=== PATIENT | male | born 1995 | race African-American/Black ===

== ENCOUNTER → 2023-08-08 | Emergency (ER) | payer SELFPAY ==
[~2023-08-08] MED LIST: DIPHENHYDRAMINE 50 MG/ML VIAL ONE; KETOROLAC 30 MG/ML INJ ONE; METOCLOPRAMIDE 10 MG/2mL INJ ONE; NA CHLORIDE 0.9% 1,000 ML ONE; NA CHLORIDE 0.9% 100 ML ONE; VALPROATE NA 500 MG/5 ML INJ IV ONE
[2023-08-08 17:09] LABS: Absolute Lymphocytes (CBC) 2.7 K/uL (0.7-4.9); Hematocrit 43.2 % (39.6-49.0); Lymphocytes % 45.6 % (15.3-44.8); MCV 85.2 fL (80-100); MPV 7.9 fL (7.6-11.3); Platelets 402 thou/uL (152-406); RBC Red Blood Cell Count 5.07 M/uL (4.33-5.43)
[2023-08-08 17:19] LABS: SARS-CoV-2 Antigen Rapid Res Negative (Negative)
[2023-08-08 17:35] LABS: Bilirubin Total 0.4 mg/dL (0.2-1.0); Potassium 3.7 mEq/L (3.5-5.1); Protein, Total 8.1 g/dL (6.4-8.2)
--- NOTE | 2023-08-08 17:44 | RAD REPORT ---
EXAM DESCRIPTION: CT - Head Brain Wo Cont - 08/08/2023 5:08 pm CLINICAL HISTORY: HEADACHE Headache, drowsiness COMPARISON: No comparisons TECHNIQUE: All CT scans are performed using dose optimization technique as appropriate and may inclu de automated exposure control or mA/KV adjustment according to patient size. FINDINGS: No intracranial hemorrhage, hydrocephalus or extra-axial fluid collection.No areas of brai n edema or evidence of midline shift. Mild mucosal thickening involves the left maxillary antrum. The paranasal sinuses and mastoids are ot herwise clear. The calvarium is intact. IMPRESSION: No acute intracranial abnormality.
--- NOTE | 2023-08-08 18:49 | ER ---
Nurse's Notes [facility] Name: Mikal Landers Age: 27 yrs Sex: Male : 1995 Arrival Date: 08/08/2023 Time: 16:36 Bed 7 Private MD: Diagnosis: Headache;Episodic tension-type headache;Chronic sinusitis, unspecified Presentation: 08/08 16:42 Chief complaint: Patient states: the right side of his head started hurting yesterday ap3 08/07/2023. patient reports his pain to be a 8/10 on the pain scale at this time. Coronavirus screen: At this time, the client does not indicate any symptoms associated with coronavirus-19. Ebola Screen: No symptoms or risks identified at this time. Initial Sepsis Screen: Does the patient meet any 2 criteria? No. Patient's initial sepsis screen is negative. Does the patient have a suspected source of infection? No. Patient's initial sepsis screen is negative. Risk Assessment: Do you want to hurt yourself or someone else? Patient reports no desire to harm self or others. Onset of symptoms was August 07, 2023. 16:42 Method Of Arrival: Ambulatory ap3 16:42 Acuity: ARIS 3 ap3 Triage Assessment: 16:44 Headache History: Denies prior headaches. General: Appears in no apparent distress. ap3 Behavior is calm, cooperative, appropriate for age. Pain: Complains of pain in right frontal area, right side of the back of head and right temporal area Pain currently is 8 out of 10 on a pain scale. Pain began gradually, 1 day ago. Pain: Also complains of no other associated symptoms. Neuro: Level of Consciousness is awake, alert, obeys commands, Oriented to person, place, time, situation, Appropriate for age. Cardiovascular: Patient's skin is warm and dry. Respiratory: Airway is patent Respiratory effort is even, unlabored, Respiratory pattern is regular, symmetrical. Historical: - Allergies: 16:43 No Known Allergies; ap3 - PMHx: 16:43 Seizure; ap3 - Immunization history:: Adult Immunizations up to date. - Social history:: Smoking status: Reported history of juuling and/or vaping. Screenin:[facility] ED Fall Risk Assessment (Adult) History of falling in the last 3 months, ap3 including since admission No falls in past 3 months (0 pts). Abuse screen: Denies threats or abuse. Nutritional screening: No deficits noted. Tuberculosis screening: No symptoms or risk factors identified. Assessment: 17:00 Reassessment: See triage assessment. nj1 17:39 Reassessment: Patient appears in no apparent distress at this time. Patient and/or nj1 family updated on plan of care and expected duration. Pain level reassessed. Patient is alert, oriented x 3, equal unlabored respirations, skin warm/dry/pink. Pain: Complains of pain in head Pain currently is 5 out of 10 on a pain scale. 18:37 Reassessment: Patient appears in no apparent distress at this time. Patient and/or nj1 family updated on plan of care and expected duration. Pain level reassessed. Patient is alert, oriented x 3, equal unlabored respirations, skin warm/dry/pink. Patient states feeling better. Patient states symptoms have improved. Vital Signs: 16:42 BP 128 / 85; Pulse 59; Resp 17; Temp 98.8; Pulse Ox 100% ; Pain 8/10; ap3 17:40 Pain 5/10; nj1 18:37 BP 105 / 55; Pulse 67; Resp 18; Pulse Ox 98% ; Pain 2/10; nj1 16:42 Pain Scale: Adult ap3 17:40 Pain Scale: Adult nj1 18:37 Pain Scale: Adult nj1 [place] Coma Score: 17:16 Eye Response: spontaneous(4). Motor Response: obeys commands(6). Verbal Response: chas oriented(5). Total: 15. 17:17 Eye Response: spontaneous(4). Motor Response: obeys commands(6). Verbal Response: chas oriented(5). Total: 15. NIH Stroke Scale Scores: 17:16 NIHSS Score: 0 [facility] ED Course: 16:41 Patient arrived in ED. gm2 16:42 Iban Davis MD is Attending Physician. chas 16:43 Triage completed. ap3 16:45 Arm band placed on right wrist. ap3 16:52 Indu Bravo, AB is Primary Nurse. nj1 17:00 Patient has correct armband on for positive identification. Placed in gown. Bed in low ko1 position. Call light in reach. Side rails up X 1. Pulse ox on. NIBP on. Door closed. Noise minimized. Lights dimmed. Warm blanket given. 17:01 Inserted saline lock: 20 gauge in right antecubital area, using aseptic technique. as6 Blood collected. 17:01 CBC with Diff Sent. as6 17: Comprehensive Metabolic Panel Sent. as6 17: Flu Sent. as6 17: SARS RAPID Sent. as6 17:07 Provided Education on: call light, fall precautions. nj1 17:09 CT Head Brain wo Cont In Process Unspecified. EDMS 18:48 Eliu Aguilar MD is Referral Physician. [facility] 19:01 No provider procedures requiring assistance completed. IV discontinued, intact, nj1 bleeding controlled. Administered Medications: 17:00 Drug: NS 0.9% IV 1000 ml IV at 1 bolus Per protocol; 1000 mL bolus Route: IV; Rate: 1 nj1 bolus; Site: right antecubital; 18:30 Follow up: Response: No adverse reaction; IV Status: Completed infusion; IV Intake: nj1 1000ml 17:00 Drug: diphenhydrAMINE IVP 50 mg IVP once Route: IVP; Site: right antecubital; nj1 17:41 Follow up: Response: No adverse reaction nj1 17:01 Drug: metoCLOPramide IVP 10 mg IVP once; over 1 to 2 minutes Route: IVP; Site: right nj1 antecubital; 17:41 Follow up: Response: No adverse reaction nj1 17:03 Drug: Ketorolac IVP 30 mg IVP once Route: IVP; Site: right antecubital; nj1 17:40 Follow up: Pain 5/10 Adult; Response: No adverse reaction; Pain is decreased nj1 17:37 Drug: Depacon IV 500 mg 5 ml IV at calculated rate once {Note: Mixed in 100ml NS bag nj1 per pharmacist "Fernando" recommendations .} Volume: 5 ml; Route: IV; Rate: calculated rate; Infused Over: 1 hrs; Site: right antecubital; 18:37 Follow up: Response: No adverse reaction; IV Status: Completed infusion; IV Intake: nj1 100ml Medication: 19:02 VIS not applicable for this client. nj1 Intake: 18:30 IV: 1000ml; Total: 1000ml. nj1 18:37 IV: 100ml; Total: 1100ml. nj1 Outcome: 18:48 Discharge ordered by . chas 19:01 Discharged to home ambulatory, with family, robert 19:01 Condition: improved 19:01 Discharge instructions given to patient, Instructed on discharge instructions, follow up and referral plans. medication usage, Demonstrated understanding of instructions, follow-up care, medications, Prescriptions given X 4, 19:03 Patient left the ED. robert NIH Stroke Scale - NIH Stroke Score Date: 08/08/2023 Time: 17:16 Total Score = 0 10. Dysarthria (speech clarity - read or repeat words) - 0(Normal) 11. Extinction and Inattention (visual/tactile/auditory/spatial/personal) - 0(No abnormality) 1a. Level of Consciousness (LOC) - 0(Alert) 1b. Level of Consciousness (LOC) (Month \\T\\ Age) - 0(Both) 1c. LOC Commands (Open \\T\\ Closes Eyes/Corduroy Cutter Operator) - 0(Both) 2. Best Gaze (Lateral Gaze Paresis) - 0(Normal) 3. Visual Field Loss - 0(No visual loss) 4. Facial Palsy - 0(Normal) 5a. Left Arm: Motor (10-second hold) - 0(No drift) 5b. Right Arm: Motor (10-second hold) - 0(No drift) 6a. Left Leg: Motor (5-second hold - always test supine) - 0(No drift) 6b. Right Leg: Motor (5-second hold - always test supine) - 0(No drift) 7. Limb Ataxia (finger/nose \\T\\ heel/graves - test with eyes open) - 0(Absent) 8. Sensory Loss (pinprick arms/legs/face) - 0(Normal) 9. Best Language: Aphasia (description/naming/reading) - 0(No aphasia) Initials: chas Signatures: Dispatcher [employer] Iban Garcia MD MD cha Prokisch, Amanda, RN RN [id number] Kody Franco, RN RN as6 Lynette Lozada RN RN ko1 Indu Bravo RN RN nj1 Chelsi Aguirre 2
--- NOTE | 2023-08-08 18:49 | EDPHYS ---
Physician Documentation [facility] Name: Mikal Landers Age: 27 yrs Sex: Male : 1995 Arrival Date: 08/08/2023 Time: 16:36 Bed 7 Private MD: ED Physician Iban Davis HPI: 08/08 17:14 This 27 yrs old Black Male presents to ER via Ambulatory with complaints of Headache. chas 17:14 The patient complains of pain to the top of head, forehead, left frontal area, left chas side of the back of head, left occipital area, left base of the skull, right frontal area, right side of the back of head, right occipital area and right base of the skull. The patient describes the headache as constant. Onset: The symptoms/episode began/occurred last night. Associated signs and symptoms: Pertinent positives: nausea. Severity of symptoms: At its worst the pain was moderate, in the emergency department the pain is unchanged. Headache History: The patient has had previous headaches and this one is similar to previous episodes, and this one is more severe than previous episodes. The symptoms are alleviated by nothing. the symptoms are aggravated by lights, movement, stress. The patient has experienced similar episodes in the past, a few times. Historical: - Allergies: 16:43 No Known Allergies; ap3 - PMHx: 16:43 Seizure; ap3 - Immunization history:: Adult Immunizations up to date. - Social history:: Smoking status: Reported history of juuling and/or vaping. ROS: 17:16 Constitutional: Negative for fever, chills, and weight loss, Eyes: Negative for injury, chas pain, redness, and discharge, ENT: Negative for injury, pain, and discharge, Neck: Negative for injury, pain, and swelling, Cardiovascular: Negative for chest pain, palpitations, and edema, Respiratory: Negative for shortness of breath, cough, wheezing, and pleuritic chest pain, Abdomen/GI: Negative for abdominal pain, nausea, vomiting, diarrhea, and constipation, Back: Negative for injury and pain, : Negative for injury, bleeding, discharge, and swelling, MS/Extremity: Negative for injury and deformity, Skin: Negative for injury, rash, and discoloration, Psych: Negative for depression, anxiety, suicide ideation, homicidal ideation, and hallucinations, Allergy/Immunology: Negative for hives, rash, and allergies, Endocrine: Negative for neck swelling, polydipsia, polyuria, polyphagia, and marked weight changes, Hematologic/Lymphatic: Negative for swollen nodes, abnormal bleeding, and unusual bruising, 17:16 Neuro: Positive for headache, Exam: 17:16 Constitutional: This is a well developed, well nourished patient who is awake, alert, chas and in no acute distress. Head/Face: Normocephalic, atraumatic. Eyes: Pupils equal round and reactive to light, extra-ocular motions intact. Lids and lashes normal. Conjunctiva and sclera are non-icteric and not injected. Cornea within normal limits. Periorbital areas with no swelling, redness, or edema. ENT: Nares patent. No nasal discharge, no septal abnormalities noted. Tympanic membranes are normal and external auditory canals are clear. Oropharynx with no redness, swelling, or masses, exudates, or evidence of obstruction, uvula midline. Mucous membranes moist. Neck: Trachea midline, no thyromegaly or masses palpated, and no cervical lymphadenopathy. Supple, full range of motion without nuchal rigidity, or vertebral point tenderness. No Meningismus. Chest/axilla: Normal chest wall appearance and motion. Nontender with no deformity. No lesions are appreciated. Cardiovascular: Regular rate and rhythm with a normal S1 and S2. No gallops, murmurs, or rubs. Normal PMI, no JVD. No pulse deficits. Respiratory: Lungs have equal breath sounds bilaterally, clear to auscultation and percussion. No rales, rhonchi or wheezes noted. No increased work of breathing, no retractions or nasal flaring. Abdomen/GI: Soft, non-tender, with normal bowel sounds. No distension or tympany. No guarding or rebound. No evidence of tenderness throughout. Back: No spinal tenderness. No costovertebral tenderness. Full range of motion. Male : Normal genitalia with no discharge or lesions. Skin: Warm, dry with normal turgor. Normal color with no rashes, no lesions, and no evidence of cellulitis. MS/ Extremity: Pulses equal, no cyanosis. Neurovascular intact. Full, normal range of motion. Neuro: Awake and alert, GCS 15, oriented to person, place, time, and situation. Cranial nerves II-XII grossly intact. Motor strength 5/5 in all extremities. Sensory grossly intact. Cerebellar exam normal. Normal gait. Psych: Awake, alert, with orientation to person, place and time. Behavior, mood, and affect are within normal limits. 17:16 Neuro: Orientation: is normal, appropriate for stated age, no acute changes, Mentation: is normal, appropriate for stated age, no acute changes, Memory: is normal, appropriate for stated age, no acute changes, Cranial nerves: grossly normal, is grossly normal based on the patient's age, no acute changes, Cerebellar function: is grossly normal, is grossly normal based on the patient's age, no acute changes, Motor: is normal, is grossly normal based on the patient's age, no acute changes, moves all fours, strength is normal, Gait: is steady, appropriate for age, seizure activity, is not displayed by the patient, Vital Signs: 16:42 BP 128 / 85; Pulse 59; Resp 17; Temp 98.8; Pulse Ox 100% ; Pain 8/10; ap3 17:40 Pain 5/10; nj1 18:37 BP 105 / 55; Pulse 67; Resp 18; Pulse Ox 98% ; Pain 2/10; nj1 16:42 Pain Scale: Adult ap3 17:40 Pain Scale: Adult nj1 18:37 Pain Scale: Adult nj1 NIH Stroke Scale Scores: 17:16 NIHSS Score: 0 chas [place] Coma Score: 17:16 Eye Response: spontaneous(4). Motor Response: obeys commands(6). Verbal Response: chas oriented(5). Total: 15. 17:17 Eye Response: spontaneous(4). Motor Response: obeys commands(6). Verbal Response: chas oriented(5). Total: 15. MDM: 16:42 Patient medically screened. chas 17:17 Differential diagnosis: cluster headache, hyponatremia, migraine, neoplasm, chas subarachnoid bleed, subdural hematoma, temporal arteritis, tension headache, trigeminal neuralgia. Differential Diagnosis altered mental status, sepsis, flu. Data reviewed: vital signs, nurses notes, radiologic studies. Consideration of Admission/Observation Patient was admitted/placed on observation. Escalation of care including admission/observation considered. I considered the following discharge prescriptions or medication management in the emergency department Medications were administered in the Emergency Department. See MAR. Independent interpretation of the following test(s) in the Emergency Department CT Scan: My interpretation is CT BRAIN. Test considered but Not performed: MRI: NO MRI BRAIN. Historians other than the Patient: Spouse/Significant Other: , WELL INFORMED. Care significantly affected by the following chronic conditions: SEIZURES. Counseling: I had a detailed discussion with the patient and/or guardian regarding the historical points, exam findings, and any diagnostic results supporting the discharge/admit diagnosis, lab results, radiology results, the need for outpatient follow up, for definitive care, a family practitioner, a neurologist. 08/08 16:43 Order name: CBC with Diff; Complete Time: 17:13 [facility] 08/08 16:43 Order name: Comprehensive Metabolic Panel; Complete Time: 17:50 [facility] 08/08 16:43 Order name: Flu; Complete Time: 17:50 [facility] 08/08 16:43 Order name: SARS RAPID; Complete Time: 17:50 [facility] 08/08 17:13 Order name: Depakote; Complete Time: 17:50 [facility] 08/08 16:43 Order name: CT Head Brain wo Cont; Complete Time: 17:50 [facility] 08/08 16:43 Order name: Oxygen; Complete Time: 16:54 [facility] Administered Medications: 17:00 Drug: NS 0.9% IV 1000 ml IV at 1 bolus Per protocol; 1000 mL bolus Route: IV; Rate: 1 nj1 bolus; Site: right antecubital; 18:30 Follow up: Response: No adverse reaction; IV Status: Completed infusion; IV Intake: nj1 1000ml 17:00 Drug: diphenhydrAMINE IVP 50 mg IVP once Route: IVP; Site: right antecubital; nj1 17:41 Follow up: Response: No adverse reaction nj1 17:01 Drug: metoCLOPramide IVP 10 mg IVP once; over 1 to 2 minutes Route: IVP; Site: right nj1 antecubital; 17:41 Follow up: Response: No adverse reaction nj1 17:03 Drug: Ketorolac IVP 30 mg IVP once Route: IVP; Site: right antecubital; nj1 17:40 Follow up: Pain 5/10 Adult; Response: No adverse reaction; Pain is decreased nj1 17:37 Drug: Depacon IV 500 mg 5 ml IV at calculated rate once {Note: Mixed in 100ml NS bag nj1 per pharmacist "Fernando" recommendations .} Volume: 5 ml; Route: IV; Rate: calculated rate; Infused Over: 1 hrs; Site: right antecubital; 18:37 Follow up: Response: No adverse reaction; IV Status: Completed infusion; IV Intake: nj1 100ml Disposition Summary: 08/08/23 18:48 Discharge Ordered Notes: Location: Home chas Problem: new chas Symptoms: have improved chas Condition: Stable chas Diagnosis - Headache chas - Episodic tension-type headache chas - Chronic sinusitis, unspecified chas Followup: chas - With: Private Physician - When: 2 - 3 days - Reason: Recheck today's complaints, Continuance of care, Re-evaluation by your physician Followup: chas - With: Eliu Aguilar MD - When: 2 - 3 days - Reason: Recheck today's complaints, Continuance of care, Re-evaluation by your physician Discharge Instructions: - Discharge Summary Sheet chas - General Headache Without Cause chas - Migraine Headache chas - Sinusitis, Adult chas - Sinusitis, Adult, [id number] chas - Migraine Headache, [id number] chas - General Headache Without Cause, [id number] [facility] Forms: - Medication Reconciliation Form [facility] - Thank You Letter [facility] - Antibiotic Education [facility] - Prescription Opioid Use [facility] - Patient Portal Instructions [facility] - Leadership Thank You Letter [facility] Prescriptions: - ondansetron 4 mg Oral Tablet,disintegrating - take 1 tablet ORAL route every 6-8 hours; 20 tablet; Refills: 0, Product [facility] Selection Permitted - Amoxicillin 500 mg Oral Capsule - take 1 capsule ORAL route every 8 hours for 10 days; 30 tablet; Refills: 0, [facility] Product Selection Permitted - Depakote 250 mg Oral tablet, delayed release (enteric coated) - take 1 tablet ORAL route every 12 hours; 30 tablet; Refills: 0, Product [facility] Selection Permitted - Ibuprofen 600 mg Oral tablet - take 1 tablet ORAL route every 6 hours As needed take with food; 20 tablet; [facility] Refills: 0, Product Selection Permitted NIH Stroke Scale - NIH Stroke Score Date: 08/08/2023 Time: 17:16 Total Score = 0 10. Dysarthria (speech clarity - read or repeat words) - 0(Normal) 11. Extinction and Inattention (visual/tactile/auditory/spatial/personal) - 0(No abnormality) 1a. Level of Consciousness (LOC) - 0(Alert) 1b. Level of Consciousness (LOC) (Month \\T\\ Age) - 0(Both) 1c. LOC Commands (Open \\T\\ Closes Eyes/Process Pumper) - 0(Both) 2. Best Gaze (Lateral Gaze Paresis) - 0(Normal) 3. Visual Field Loss - 0(No visual loss) 4. Facial Palsy - 0(Normal) 5a. Left Arm: Motor (10-second hold) - 0(No drift) 5b. Right Arm: Motor (10-second hold) - 0(No drift) 6a. Left Leg: Motor (5-second hold - always test supine) - 0(No drift) 6b. Right Leg: Motor (5-second hold - always test supine) - 0(No drift) 7. Limb Ataxia (finger/nose \\T\\ heel/graves - test with eyes open) - 0(Absent) 8. Sensory Loss (pinprick arms/legs/face) - 0(Normal) 9. Best Language: Aphasia (description/naming/reading) - 0(No aphasia) Initials: chas Signatures: Dispatcher [employer] Iban Garcia MD MD cha Prokisch, Amanda RN RN ap3 Indu Bravo RN RN nj1
[2023-08-08 21:57] VITALS: TEMP 98.8
[2023-08-08 22:13] VITALS: BP 105/55; O2SAT 98
== END ==
LOC: ER 16:36
DX: G44.219 Episodic tension-type headache, not intractable (principal); J32.9 Chronic sinusitis, unspecified
CPT/HCPCS: 36415; 70450; 80053; 80164; 85025; 87804; 87811; J1200; J2765; J7030

== ENCOUNTER 2024-03-21 16:05 | Emergency (ER) | payer SELFPAY ==
[2024-03-21 16:27] LABS: Absolute Eosinophils 0.1 K/uL (0-0.5); Absolute Lymphocytes (CBC) 1.7 K/uL (0.7-4.9); Absolute Monocytes 0.3 K/uL (0.1-1.3); Absolute Neutrophil 2.2 K/uL (1.8-8.0); Basophils % 0.7 % (0-1.3); Eosinophils % 2.1 % (0-4.4); Hematocrit 41.2 % (39.6-49.0); Hemoglobin 13.6 g/dL (13.6-17.9); Lymphocytes % 38.3 % (15.3-44.8); MCH 28.3 pg (27.0-35.0); MCHC 32.9 g/dL (32.0-36.0); MCV 86.1 fL (80-100); Monocytes % 7.1 % (3.3-12.3); Neutrophils % 51.8 % (41.7-73.7); Nucleated Red Blood Cells % 0.3 % (0-0); Platelets 294 thou/uL (152-406); RBC Red Blood Cell Count 4.79 M/uL (4.33-5.43)
[2024-03-21 16:46] LABS: Troponin High Sensitivity 5.5 pg/mL (<58.9)
[2024-03-21] MEDS ORDERED: POTASSIUM CL SA 10 MEQ TAB PO ONE (17:14)
--- NOTE | 2024-03-21 17:21 | RAD REPORT ---
EXAM DESCRIPTION: Lexi Single View03/21/2024 4:42 pm CLINICAL HISTORY: CHEST PAIN COMPARISON: No comparisons TECHNIQUE: Portable AP view of the chest. FINDINGS: The lungs are clear. No pneumothorax or effusion. The cardiomediastinal contours are unre markable. IMPRESSION: No acute cardiopulmonary process.
--- NOTE | 2024-03-21 17:32 | ER ---
Nurse's Notes [facility] Name: Mikal Landers Age: 28 yrs Sex: Male : 1995 Arrival Date: 03/21/2024 Time: 16:05 Bed 19 Private MD: Diagnosis: Chest pain, unspecified;Hypokalemia Presentation: 03/21 16:11 Chief complaint: EMS states: Toned out for CP and bradycardia. Coronavirus screen: At [facility] this time, the client does not indicate any symptoms associated with coronavirus-19. Ebola Screen: No symptoms or risks identified at this time. Initial Sepsis Screen: Does the patient meet any 2 criteria? No. Patient's initial sepsis screen is negative. Does the patient have a suspected source of infection? No. Patient's initial sepsis screen is negative. Risk Assessment: Do you want to hurt yourself or someone else? Patient reports no desire to harm self or others. Onset of symptoms was March 21, 2024. 16:11 Method Of Arrival: EMS: [facility] 16:11 Acuity: ARIS 2 [facility] 16:11 Care prior to arrival: Medication(s) given: ASA, 81 mg, x 4, IV initiated. 20 GA, in jl7 the left forearm. Triage Assessment: 16:11 General: Appears in no apparent distress. uncomfortable, Behavior is calm, cooperative, jl7 quiet. Pain: Complains of pain in anterior aspect of left upper chest Pain does not radiate. Pain currently is 8 out of 10 on a pain scale. Neuro: Level of Consciousness is awake, alert, obeys commands, Oriented to person, place, time, situation. Cardiovascular: Patient's skin is warm and dry. Respiratory: Airway is patent Respiratory effort is even, unlabored, Respiratory pattern is regular, symmetrical. Derm: Skin is pink, warm \T\ dry. Historical: - Allergies: 16:31 No Known Allergies; jl7 - Home Meds: 16:31 Focalin oral [Active]; Depakote Oral [Active]; jl7 - PMHx: 16:31 Seizure; ADHD; jl7 - PSHx: 16:31 None; jl7 - Immunization history:: Adult Immunizations unknown. - Infectious Disease History:: Denies. - Social history:: Smoking status: Patient reports the use of cigarette tobacco products. Screenin:35 [facility] ED Fall Risk Assessment (Adult) History of falling in the last 3 months, jl7 including since admission No falls in past 3 months (0 pts) Confusion or Disorientation No (0 pts) Intoxicated or Sedated No (0 pts) Impaired Gait No (0 pts) Mobility Assist Device Used No (0 pt) Altered Elimination No (0 pt) Score/Fall Risk Level 0 - 2 = Low Risk Oriented to surroundings, Maintained a safe environment. Abuse screen: Denies threats or abuse. Denies injuries from another. Nutritional screening: No deficits noted. Tuberculosis screening: No symptoms or risk factors identified. Assessment: 16:35 Reassessment: See triage assessment. jl7 17:27 Reassessment: Dr. Hurd at bedside discussing results and POC. jl7 Vital Signs: 16:11 BP 123 / 76; Pulse 53; Resp 15; Temp 97.9; Pulse Ox 96% ; Weight 64.86 kg; Height 5 ft. jl7 5 in. ; Pain 8/10; 17:09 BP 128 / 82; Pulse 54; Resp 15; Pulse Ox 97% ; jl7 16:11 Body Mass Index 23.80 (64.86 kg, 165.1 cm) jl7 16:11 Pain Scale: Adult jl7 ED Course: 16:11 Patient arrived in ED. ms3 16:11 Jed Hurd DO is Attending Physician. ms3 16:11 Arm band placed on right wrist. EKG completed in triage. Results shown to MD. jl7 16:15 Maintain EMS IV. Dressing intact. Good blood return noted. Site clean \T\ dry. Gauge \T\ jl 7 site: 20 Left FA. Flushed with 10 mL NS. 16:15 Initial lab(s) drawn, by me, sent to lab. jl7 16:22 Lakisha Ma, AB is Primary Nurse. jl7 16:31 Triage completed. jl7 16:35 Patient has correct armband on for positive identification. Provided Education on: use jl7 of call victor. Client placed on continuous cardiac and pulse oximetry monitoring. NIBP monitoring applied. shelter monitor on. 16:44 XRAY Chest (1 view) In Process Unspecified. EDMS 17:31 Neville Quinn DO is Referral Physician. ms3 17:42 No provider procedures requiring assistance completed. IV discontinued, intact, jl7 bleeding controlled, No redness/swelling at site. Pressure dressing applied. Administered Medications: 17:20 Drug: Potassium Chloride PO 40 mEq PO once Route: PO; jl7 17:44 Follow up: Response: No adverse reaction jl7 Medication: 16:35 VIS not applicable for this client. jl7 Outcome: 17:32 Discharge ordered by . ms3 17:42 Discharged to home ambulatory, jl7 17:42 Condition: stable 17:42 Discharge instructions given to patient, Instructed on discharge instructions, follow up and referral plans. Demonstrated understanding of instructions, follow-up care, 17:44 Patient left the ED. jl7 Signatures: Dispatcher [employer] EDLakisha Dial RN RN jl7 Jed Hurd DO DO ms3 Corrections: (The following items were deleted from the chart) 16:33 16:31 Allergies: No Known Allergies; [facility] jl 16:33 16:31 Allergies: Focalin; [place] [id number]
--- NOTE | 2024-03-21 17:32 | EDPHYS ---
Physician Documentation [facility] Name: Mikal Landers Age: 28 yrs Sex: Male : 1995 Arrival Date: 03/21/2024 Time: 16:05 Bed 19 Private MD: ED Physician Jed Hurd HPI: 03/21 16:13 This 28 yrs old Black Male presents to ER via Unassigned with complaints of Chest pain. ms3 16:13 28-year-old male with past medical history of ADHD, seizures, bradycardia presents to [facility] the emergency department via [facility] department for chest pain. Patient states his discomfort is located on the left side of his chest and rated a 8/10. Patient denies radiation of the pain. He denies nausea, vomiting, diaphoresis EMS states they administered 324 mg of aspirin prior to arrival.. Historical: - Allergies: 16:31 No Known Allergies; jl7 - Home Meds: 16:31 Focalin oral [Active]; Depakote Oral [Active]; jl7 - PMHx: 16:31 Seizure; ADHD; jl7 - PSHx: 16:31 None; jl7 - Immunization history:: Adult Immunizations unknown. - Infectious Disease History:: Denies. - Social history:: Smoking status: Patient reports the use of cigarette tobacco products. ROS: 16:13 Constitutional: Negative for fever, and chills. Neck: Negative for injury, pain, and ms3 swelling, 16:13 Respiratory: Negative for shortness of breath, cough, wheezing, and pleuritic chest pain, Abdomen/GI: Negative for abdominal pain, nausea, vomiting, diarrhea, and constipation, MS/Extremity: Negative for injury and deformity, Skin: Negative for injury, rash, and discoloration, 16:13 Cardiovascular: Positive for chest pain, Exam: 16:13 Constitutional: This is a well developed, well nourished patient who is awake, alert, ms3 and in no acute distress. Chest/axilla: Normal chest wall appearance and motion. Nontender with no deformity. Cardiovascular: Regular rate and rhythm with a normal S1 and S2. No gallops, murmurs, or rubs. Normal PMI, no JVD. No pulse deficits. Respiratory: Lungs have equal breath sounds bilaterally, clear to auscultation and percussion. No rales, rhonchi or wheezes noted. No increased work of breathing, no retractions or nasal flaring. Abdomen/GI: Soft, non-tender, with normal bowel sounds. No distension or tympany. No guarding or rebound. No evidence of tenderness throughout. Skin: Warm, dry with normal turgor. Normal color with no rashes, no lesions, and no evidence of cellulitis. Vital Signs: 16:11 BP 123 / 76; Pulse 53; Resp 15; Temp 97.9; Pulse Ox 96% ; Weight 64.86 kg; Height 5 ft. jl7 5 in. ; Pain 8/10; 17:09 BP 128 / 82; Pulse 54; Resp 15; Pulse Ox 97% ; jl7 16:11 Body Mass Index 23.80 (64.86 kg, 165.1 cm) jl7 16:11 Pain Scale: Adult jl7 MDM: 16:13 Differential diagnosis: abnormal EKG, acute myocardial infarction, coronary artery ms3 disease chest wall pain, pericarditis, pneumothorax. 16:14 Patient medically screened. ms3 17:10 Independent interpretation of the following test(s) in the Emergency Department X-Ray: ms3 My interpretation is Chest x-ray images reviewed by me do not reveal pneumonia or pneumothorax. 17:34 HEART Score: History: Slightly Suspicious (0), ECG: Normal (0), Age: < or = 45 years ms3 (0), Risk Factors: No Risk Factors Known (0), Troponin: < or = 1 x Normal Limit (0), Total Score = 0. Data reviewed: vital signs, nurses notes, lab test result(s), EKG, radiologic studies, and as a result, I will discharge patient. Counseling: I had a detailed discussion with the patient and/or guardian regarding the historical points, exam findings, and any diagnostic results supporting the discharge/admit diagnosis, lab results, radiology results, the need for outpatient follow up, to return to the emergency department if symptoms worsen or persist or if there are any questions or concerns that arise at home. Special discussion: Based on the patient's history, exam, and Dx evaluation, there is no indication for emergent intervention or inpatient Tx. It is understood by the patient/guardian that if the Sx's persist or worsen they need to return immediately for re-evaluation. ED course: Discussed labs, chest x-ray, EKG findings with patient. Patient to follow-up with Dr. Quinn in 2 to 3 days. Patient understands and agrees with plan. All questions were answered. Return precautions discussed include worsening symptoms, or any other concerns. 03/21 16:12 Order name: Basic Metabolic Panel; Complete Time: 17:09 ms3 03/21 16:12 Order name: CBC with Diff; Complete Time: 17: ms3 03/21 16:12 Order name: Troponin HS; Complete Time: 17: ms3 03/21 16:12 Order name: XRAY Chest (1 view); Complete Time: 17:22 ms3 03/21 16:12 Order name: EKG; Complete Time: 16:13 ms3 03/21 16:12 Order name: Cardiac monitoring; Complete Time: 16: ms3 03/21 16:12 Order name: EKG - Nurse/Tech; Complete Time: 16: ms3 03/21 16:12 Order name: IV Saline Lock; Complete Time: 16: ms3 03/21 16:12 Order name: Labs collected and sent; Complete Time: 16: ms3 03/21 16:12 Order name: O2 Per Protocol; Complete Time: 16: ms3 03/21 16:12 Order name: O2 Sat Monitoring; Complete Time: 16:23 ms3 Administered Medications: 17:20 Drug: Potassium Chloride PO 40 mEq PO once Route: PO; jl7 17:44 Follow up: Response: No adverse reaction jl7 Disposition Summary: 03/21/24 17:32 Discharge Ordered Notes: Location: Home ms3 Condition: Stable ms3 Diagnosis - Chest pain, unspecified ms3 - Hypokalemia ms3 Followup: ms3 - With: Neville Quinn DO - When: 2 - 3 days - Reason: Recheck today's complaints Discharge Instructions: - Discharge Summary Sheet ms3 - Nonspecific Chest Pain, Adult ms3 - Hypokalemia ms3 Forms: - Medication Reconciliation Form ms3 - Antibiotic Education ms3 - Prescription Opioid Use ms3 - Patient Portal Instructions ms3 - Leadership Thank You Letter ms3 Signatures: Dispatcher [employer] Lakisha Cifeuntes RN RN jl7 Jed Hurd DO DO ms3 Corrections: (The following items were deleted from the chart) 16:13 16:13 BASIC METABOLIC PANEL+C.LAB.BRZ ordered. EDMS EDMS 16: 16:13 CBC+H.LAB.BRZ ordered. EDMS EDMS 16: 16:13 Troponin High Sensitivity+C.LAB.BRZ ordered. EDMS EDMS 16: 16:31 Allergies: No Known Allergies; jl7 jl7 16:33 16:31 Allergies: Focalin; jl7 jl7
[2024-03-21 18:12] VITALS: TEMP 97.9
[2024-03-21 18:18] VITALS: BP 128/82; O2SAT 97
== END 2024-03-21 17:44 | disposition home or self-care (01) ==
LOC: ER 16:05
DX: R07.9 Chest pain, unspecified (principal); E87.6 Hypokalemia; Z72.0 Tobacco use
CPT/HCPCS: 36415; 71045; 80048; 84484; 85025; 99284

== ENCOUNTER 2024-05-27 10:31 | Emergency (ER) | payer SELFPAY ==
--- NOTE | 2024-05-27 10:57 | RAD REPORT ---
EXAM: Chest Single View HISTORY: CHEST PAIN COMPARISON: 03/21/2024 FINDINGS: LUNGS/PLEURA: The lungs are clear. No pleural effusions or pneumothorax. No pulmonary edema. MEDIASTINUM: The mediastinal silhouette is within normal limits. CARDIAC: The cardiac silhouette is within normal limits. UPPER ABDOMEN: No significant abnormality. BONES: No acute fracture. LINES/TUBES/OTHER: N/A IMPRESSION: No evidence of acute cardiopulmonary disease
[2024-05-27 11:57] LABS: Absolute Eosinophils 0.1 K/uL (0-0.5); Absolute Lymphocytes (CBC) 2.2 K/uL (0.7-4.9); Absolute Monocytes 0.4 K/uL (0.1-1.3); Absolute Neutrophil 2.8 K/uL (1.8-8.0); Basophils % 0.8 % (0-1.3); Eosinophils % 2.6 % (0-4.4); Hematocrit 43.3 % (39.6-49.0); Hemoglobin 14.2 g/dL (13.6-17.9); Lymphocytes % 40.2 % (15.3-44.8); MCH 28.6 pg (27.0-35.0); MCHC 32.7 g/dL (32.0-36.0); MCV 87.2 fL (80-100); MPV 7.9 fL (7.6-11.3); Monocytes % 6.9 % (3.3-12.3); Neutrophils % 49.5 % (41.7-73.7); Nucleated Red Blood Cells % 0.1 % (0-0); Platelets 345 thou/uL (152-406); RBC Red Blood Cell Count 4.97 M/uL (4.33-5.43); Red Cell Distribution Width 14.7 % (12.1-15.2)
[2024-05-27 12:12] LABS: Anion Gap 5.9 mEq/L (5.0-15.0); Potassium 3.9 mEq/L (3.5-5.1); Troponin High Sensitivity 3.1 pg/mL (<58.9)
--- NOTE | 2024-05-27 12:30 | EDPHYS ---
Physician Documentation [facility] Name: Mikal Landers Age: 28 yrs Sex: Male : 1995 Arrival Date: 05/27/2024 Time: 10:31 Bed 8 Private MD: ED Physician Petey Martinez HPI: 05/27 10:44 This 28 yrs old Black Male presents to ER via Ambulatory with complaints of Chest Pain. ec2 10:44 Patient with history of seizures arrives today for evaluation of chest pain. States ec2 that last night he had a seizure which is normal for him, states that he also developed left-sided chest pain that he describes as sharp without radiating symptoms or specific alleviating or exacerbating factors. No cardiac disease history. Historical: - Allergies: 10:42 No Known Allergies; ll1 - PMHx: 10:42 adhd; Seizure; ll1 - PSHx: 10:42 None; ll1 - Immunization history:: Adult Immunizations up to date. - Infectious Disease History:: Denies. - Social history:: Smoking status: Patient reports the use of cigarette tobacco products, denies chronic smoking, but will smoke occasionally. ROS: 10:44 Constitutional: as per hpi ec2 Exam: 10:44 Constitutional: GEN: NAD Head: atraumatic Eyes: EOMI Ears: External ears are ec2 normal. CV: regular rate LUNGS: no respiratory distress, no wheezes, no rales, no rhonchi ABD: non-distended SKIN: no evidence of rashes MSK: no evidence of trauma Vital Signs: 10:41 BP 128 / 76; Pulse 56; Resp 16; Temp 97.7; Pulse Ox 100% ; Weight 72.57 kg; Height 5 ll1 ft. 7 in. ; Pain 5/10; 12:10 BP 123 / 86; Pulse 48; Resp 16; Pulse Ox 100% ; bp 12:50 BP 123 / 86; Pulse 51; Resp 16; Pulse Ox 98% ; db 10:41 Body Mass Index 25.06 (72.57 kg, 170.18 cm) ll1 10:41 Pain Scale: Adult ll1 MDM: 10:35 Medical Screening Exam initiated ec2 10:44 Data reviewed: vital signs, nurses notes. ED course: Patient arrives today for ec2 evaluation of chest pain. Examination remarkable for well-appearing nontoxic individuals otherwise in no acute distress. EKG obtained, independently reviewed and interpreted by me, shows normal sinus rhythm, rate of 53, no acute ST segment elevations, intervals are nonactionable. Does have benign early repolarization noted in the lateral leads. Will obtain lab work as well as chest x-ray. Differential diagnosis considered include processes such as ACS, electrolyte disturbances, arrhythmia, anemia. 12:29 ED course: Lab work is unrevealing. On reassessment patient is well-appearing no acute ec2 distress. Will discharge home. Return precautions given.. 05/27 10:44 Order name: Basic Metabolic Panel; Complete Time: 12:28 ec2 05/27 10:44 Order name: CBC with Diff; Complete Time: 12:28 ec2 05/27 10:44 Order name: Troponin HS; Complete Time: 12:28 ec2 05/27 10:44 Order name: XRAY Chest (1 view); Complete Time: 11:00 ec2 05/27 10:41 Order name: EKG; Complete Time: 10:42 ll1 05/27 10:41 Order name: EKG - Nurse/Tech; Complete Time: 10:41 ll1 05/27 10:44 Order name: Cardiac monitoring; Complete Time: 12:10 ec2 05/27 10:44 Order name: IV Saline Lock; Complete Time: 12:10 ec2 05/27 10:44 Order name: Labs collected and sent; Complete Time: 12:10 ec2 05/27 10:44 Order name: O2 Per Protocol; Complete Time: 12:10 ec2 05/27 10:44 Order name: O2 Sat Monitoring; Complete Time: 12:10 ec2 Administered Medications: No medications were administered Disposition Summary: 05/27/24 12:29 Discharge Ordered Notes: Location: Home ec2 Condition: Stable ec2 Diagnosis - Chest pain, unspecified ec2 Followup: ec2 - With: Private Physician - When: - Reason: Re-evaluation by your physician Discharge Instructions: - Discharge Summary Sheet ec2 - Nonspecific Chest Pain, Adult ec2 Forms: - Medication Reconciliation Form ec2 - Antibiotic Education ec2 - Prescription Opioid Use ec2 - Patient Portal Instructions ec2 - Leadership Thank You Letter ec2 Signatures: Dispatcher [employer] Epifanio Morejon RN RN [facility] Eliz Moody RN RN Petey Nunn MD MD ec2 Corrections: (The following items were deleted from the chart) 10:44 10:44 BASIC METABOLIC PANEL+C.LAB.BRZ ordered. EDMS EDMS 10:44 10:44 CBC+H.LAB.BRZ ordered. EDMS EDMS 10:44 10:44 Troponin High Sensitivity+C.LAB.BRZ ordered. EDMS EDMS 10:44 10:44 Chest Single View+RAD.RAD.BRZ ordered. EDMS EDMS
--- NOTE | 2024-05-27 12:30 | ER ---
Nurse's Notes [facility] Name: Mikal Landers Age: 28 yrs Sex: Male : 1995 Arrival Date: 05/27/2024 Time: 10:31 Bed 8 Private MD: Diagnosis: Chest pain, unspecified Presentation: 05/27 10:41 Chief complaint: Patient states: CP and seizure started last night. Coronavirus screen: ll1 Client denies travel out of the [place] in the last 14 days. At this time, the client does not indicate any symptoms associated with coronavirus-19. Ebola Screen: Patient denies travel to an Ebola-affected area in the 21 days before illness onset. Initial Sepsis Screen: Does the patient meet any 2 criteria? No. Patient's initial sepsis screen is negative. Does the patient have a suspected source of infection? No. Patient's initial sepsis screen is negative. Risk Assessment: Do you want to hurt yourself or someone else? Patient reports no desire to harm self or others. Onset of symptoms was May 26, 2024. 10:41 Method Of Arrival: Ambulatory ll1 10:41 Acuity: ARIS 3 ll1 Triage Assessment: 10:42 General: Appears in no apparent distress. Behavior is calm, cooperative, appropriate ll1 for age. Pain: Complains of pain in chest Quality of pain is described as aching. Neuro: Reports seizure last night. Cardiovascular: Reports chest pain. Historical: - Allergies: 10:42 No Known Allergies; ll1 - PMHx: 10:42 adhd; Seizure; ll1 - PSHx: 10:42 None; ll1 - Immunization history:: Adult Immunizations up to date. - Infectious Disease History:: Denies. - Social history:: Smoking status: Patient reports the use of cigarette tobacco products, denies chronic smoking, but will smoke occasionally. Screenin:10 [facility] ED Fall Risk Assessment (Adult) History of falling in the last 3 months, bp including since admission No falls in past 3 months (0 pts) Confusion or Disorientation No (0 pts) Intoxicated or Sedated No (0 pts) Impaired Gait No (0 pts) Mobility Assist Device Used No (0 pt) Altered Elimination No (0 pt) Score/Fall Risk Level 0 - 2 = Low Risk. Abuse screen: Denies threats or abuse. Denies injuries from another. Nutritional screening: No deficits noted. Tuberculosis screening: No symptoms or risk factors identified. Assessment: 10:45 General: Appears in no apparent distress. Behavior is cooperative, appropriate for age, bp anxious. 12:11 Reassessment: Patient appears in no apparent distress at this time. Patient is alert, bp oriented x 3, equal unlabored respirations, skin warm/dry/pink. 12:50 Reassessment: Patient appears in no apparent distress at this time. Patient and/or db family updated on plan of care and expected duration. Pain level reassessed. Patient is alert, oriented x 3, equal unlabored respirations, skin warm/dry/pink. General: Appears in no apparent distress. comfortable, Behavior is calm, cooperative. General: Appears in no apparent distress. comfortable. Pain: Denies pain. Pain does not radiate. Pain began gradually. Vital Signs: 10:41 BP 128 / 76; Pulse 56; Resp 16; Temp 97.7; Pulse Ox 100% ; Weight 72.57 kg; Height 5 ll1 ft. 7 in. ; Pain 5/10; 12:10 BP 123 / 86; Pulse 48; Resp 16; Pulse Ox 100% ; bp 12:50 BP 123 / 86; Pulse 51; Resp 16; Pulse Ox 98% ; db 10:41 Body Mass Index 25.06 (72.57 kg, 170.18 cm) ll1 10:41 Pain Scale: Adult ll1 ED Course: 10:32 Patient arrived in ED. mr 10:35 Petey Martinez MD is Attending Physician. ec2 10:42 Triage completed. ll1 10:42 Arm band placed on. ll1 10:55 XRAY Chest (1 view) In Process Unspecified. EDMS 11:13 Gerry Yost, AB is Primary Nurse. bp 12:10 Patient has correct armband on for positive identification. Provided Education on: NA. bp Client placed on continuous cardiac and pulse oximetry monitoring. NIBP monitoring applied. clinical research monitor on. Pulse ox on. NIBP on. 12:10 Initial lab(s) drawn, by ED staff, sent to lab. EKG done, by ED staff, reviewed by bp Petey Martinez MD. Inserted saline lock: 20 gauge in right antecubital area, using aseptic technique. Blood collected. Flushed with 10 mL NS. 12:50 Warm blanket given. Pillow given. db 12:50 No provider procedures requiring assistance completed. IV discontinued, intact, db bleeding controlled, No redness/swelling at site. Patient maintains SpO2 saturation greater than 95% on room air. Administered Medications: No medications were administered Medication: 12:50 VIS not applicable for this client. db Outcome: 12:29 Discharge ordered by . ec2 12:50 Discharged to home ambulatory, with family, db 12:50 Condition: stable 12:50 Discharge instructions given to patient, Instructed on discharge instructions, follow up and referral plans. 12:52 Patient left the ED. db Signatures: Dispatcher [employer] EDMS Alida Pittman, Reg Reg mr Gerry Yost, RN RN Epifanio Lanier RN RN ll1 Eliz Moody, AB RN Petey Nunn MD MD ec2
[2024-05-27 13:01] VITALS: TEMP 97.7
[2024-05-27 13:02] VITALS: BP 123/86
[2024-05-27 13:03] VITALS: O2SAT 98
== END 2024-05-27 12:52 | disposition home or self-care (01) ==
LOC: ER 10:31
DX: R07.9 Chest pain, unspecified (principal); F17.210 Nicotine dependence, cigarettes, uncomplicated
CPT/HCPCS: 36415; 71045; 80048; 84484; 85025; 93005

== ENCOUNTER 2024-06-11 08:52 | Emergency (ER) | payer OTHER ==
[2024-06-11 10:11] LABS: PT Prothrombin Time 13.6 SECONDS (9.4-12.5); PTT, Activated Partial Thromb 37.7 SECONDS (24.3-36.9); Protime INR 1.22
[2024-06-11 10:12] LABS: Absolute Lymphocytes (CBC) 1.5 K/uL (0.7-4.9); Absolute Monocytes 0.6 K/uL (0.1-1.3); Absolute Neutrophil 3.7 K/uL (1.8-8.0); Basophils % 0.7 % (0-1.3); Eosinophils % 0.8 % (0-4.4); Hematocrit 48.6 % (39.6-49.0); Hemoglobin 15.8 g/dL (13.6-17.9); Lymphocytes % 25.2 % (15.3-44.8); MCH 28.3 pg (27.0-35.0); MCHC 32.5 g/dL (32.0-36.0); MCV 87.2 fL (80-100); MPV 8.2 fL (7.6-11.3); Monocytes % 10.3 % (3.3-12.3); Nucleated Red Blood Cells % 0.1 % (0-0); Platelets 344 thou/uL (152-406); RBC Red Blood Cell Count 5.57 M/uL (4.33-5.43); Red Cell Distribution Width 14.4 % (12.1-15.2)
[2024-06-11 10:27] LABS: ALT/SGPT 18 U/L (16-61); AST/SGOT 21 U/L (15-37); Albumin 4.6 g/dL (3.4-5.0); Albumin/Globulin Ratio 1.2 (1.1-1.8); Alkaline Phosphatase 55 U/L (45-117); Anion Gap 13.5 mEq/L (5.0-15.0); BUN Blood Urea Nitrogen 30 mg/dL (7-18); Bicarbonate 21 mEq/L (21-32); Bilirubin Direct 0.5 mg/dL (0-0.2); Bilirubin Indirect, Calculated 1.6 mg/dL (0.2-0.8); Bilirubin Total 2.1 mg/dL (0.2-1.0); Globulin 3.9 g/dL (2.3-3.5); Glomerular Filtration Rate 84 ml/min (=/>90); Glucose Level 84 mg/dL (74-106); Potassium 3.5 mEq/L (3.5-5.1); Protein, Total 8.5 g/dL (6.4-8.2); Sodium Level 135 mEq/L (136-145)
--- NOTE | 2024-06-11 10:50 | ER ---
Nurse's Notes [facility] – [place], [place] Name: Mikal Landers Age: 28 yrs Sex: Male : 1995 Arrival Date: 06/11/2024 Time: 08:52 Bed 17 Private MD: Diagnosis: Chest pain, unspecified;Weakness;Other seizures Presentation: 06/11 08:53 Chief complaint: EMS states: "HE WAS RUNNING AROUND AND WHEN THE SHUTTLECOCK FEATHER TRIMMER GOT HIM HE SAID bp HE HAD CHEST PAIN.". Coronavirus screen: At this time, the client does not indicate any symptoms associated with coronavirus-19. Ebola Screen: No symptoms or risks identified at this time. Initial Sepsis Screen: Does the patient meet any 2 criteria? No. Patient's initial sepsis screen is negative. Does the patient have a suspected source of infection? No. Patient's initial sepsis screen is negative. Risk Assessment: Do you want to hurt yourself or someone else? Patient reports no desire to harm self or others. Note PT IN [facility] CUSTODY. Onset of symptoms is unknown. 08:53 Method Of Arrival: EMS: [facility] bp 08:53 Acuity: ARIS 3 bp Triage Assessment: 08:55 General: Appears in no apparent distress. Behavior is uncooperative. Pain: Denies pain. bp EENT: No deficits noted. Neuro: Level of Consciousness is awake, alert, obeys commands, Oriented to Appropriate for age. Cardiovascular: Rhythm is sinus rhythm. Respiratory: No deficits noted. GI: No signs and/or symptoms were reported involving the gastrointestinal system. : No signs and/or symptoms were reported regarding the genitourinary system. Historical: - PMHx: 08:55 adhd; Seizure; bp - Immunization history:: Adult Immunizations up to date. - Infectious Disease History:: Denies. - Social history:: Smoking status: unknown. Screenin:00 [facility] ED Fall Risk Assessment (Adult) History of falling in the last 3 months, bp including since admission No falls in past 3 months (0 pts) Confusion or Disorientation No (0 pts) Intoxicated or Sedated No (0 pts) Impaired Gait No (0 pts) Mobility Assist Device Used No (0 pt) Altered Elimination No (0 pt) Score/Fall Risk Level 0 - 2 = Low Risk Oriented to surroundings. Abuse screen: Denies threats or abuse. Denies injuries from another. Nutritional screening: No deficits noted. Tuberculosis screening: No symptoms or risk factors identified. Assessment: 09:00 General: Appears in no apparent distress. Behavior is cooperative, appropriate for age, bp anxious. 11:00 Reassessment: DC WITH [facility]PPD. Pain: Denies pain. bp Vital Signs: 08:53 BP 122 / 80; Pulse 83; Resp 16; Temp 98; Pulse Ox 98% ; bp 09:53 BP 103 / 66; Pulse 74; Resp 12; Pulse Ox 99% ; bp 11:00 BP 111 / 79; Pulse 72; Resp 14; Pulse Ox 100% ; bp NIH Stroke Scale Scores: 09:38 NIHSS Score: 0 chas ED Course: 08:53 Patient arrived in ED. bp 08:55 Triage completed. bp 08:55 Arm band placed on. bp 09:04 Gerry Yost, RN is Primary Nurse. bp 09:11 Iban Davis MD is Attending Physician. chas 09:51 Initial lab(s) drawn, by tn, sent to lab. EKG done, by ED staff, reviewed by Iban Davis MD. Inserted saline lock: 20 gauge in right wrist, using aseptic technique. Blood collected. Flushed with 10 mL NS. 10:49 Chest Single View XRAY In Process Unspecified. EDMS 10:49 Tanner Hernandez MD is Referral Physician. chas 10:49 Eliu Aguilar MD is Referral Physician. chas 11:00 Patient has correct armband on for positive identification. Provided Education on: N/A. bp Client placed on continuous cardiac and pulse oximetry monitoring. NIBP monitoring applied. monitoring manager on. Pulse ox on. NIBP on. 11:00 No provider procedures requiring assistance completed. IV discontinued, intact, bp bleeding controlled, No redness/swelling at site. Pressure dressing applied. Patient maintains SpO2 saturation greater than 95% on room air. Administered Medications: 09:50 Drug: NS 0.9% IV 1000 ml IV at 1000 ml once; to be given as a bolus over 60 minutes bp Route: IV; Rate: 1000 ml; Site: right wrist; 11:02 Follow up: IV Status: Completed infusion bp Medication: 11:00 VIS not applicable for this client. bp Outcome: 10:49 Discharge ordered by . chas 11:00 Discharged to Law Enforcement bp 11:00 Condition: stable 11:00 Discharge instructions given to patient, police, Instructed on discharge instructions, follow up and referral plans. Demonstrated understanding of instructions, follow-up care, 11:02 Patient left the ED. bp NIH Stroke Scale - NIH Stroke Score Date: 06/11/2024 Time: 09:38 Total Score = 0 10. Dysarthria (speech clarity - read or repeat words) - 0(Normal) 11. Extinction and Inattention (visual/tactile/auditory/spatial/personal) - 0(No abnormality) 1a. Level of Consciousness (LOC) - 0(Alert) 1b. Level of Consciousness (LOC) (Month \\T\\ Age) - 0(Both) 1c. LOC Commands (Open \\T\\ Closes Eyes/Supervisor [employer] Placing) - 0(Both) 2. Best Gaze (Lateral Gaze Paresis) - 0(Normal) 3. Visual Field Loss - 0(No visual loss) 4. Facial Palsy - 0(Normal) 5a. Left Arm: Motor (10-second hold) - 0(No drift) 5b. Right Arm: Motor (10-second hold) - 0(No drift) 6a. Left Leg: Motor (5-second hold - always test supine) - 0(No drift) 6b. Right Leg: Motor (5-second hold - always test supine) - 0(No drift) 7. Limb Ataxia (finger/nose \\T\\ heel/graves - test with eyes open) - 0(Absent) 8. Sensory Loss (pinprick arms/legs/face) - 0(Normal) 9. Best Language: Aphasia (description/naming/reading) - 0(No aphasia) Initials: chas Signatures: Dispatcher [employer] Iban Garcia MD MD cha Peltier, Brian, RN RN bp
--- NOTE | 2024-06-11 10:50 | EDPHYS ---
Physician Documentation [facility] Name: Mikal Landers Age: 28 yrs Sex: Male : 1995 Arrival Date: 06/11/2024 Time: 08:52 Bed 17 Private MD: ED Physician Iban Davis HPI: 06/11 09:28 This 28 yrs old Black Male presents to ER via EMS with complaints of Chest Pain. [facility] 09:28 The patient or guardian reports chest pain that is located primarily in the anterior [facility] chest wall, bilaterally. The pain does not radiate. Associated signs and symptoms: The patient has no apparent associated signs or symptoms. The chest pain is described as aching. Modifying factors: The symptoms are alleviated by nothing. the symptoms are aggravated by nothing. Historical: - PMHx: 08:55 adhd; Seizure; bp - Immunization history:: Adult Immunizations up to date. - Infectious Disease History:: Denies. - Social history:: Smoking status: unknown. ROS: 09:32 Constitutional: Negative for fever, chills, and weight loss, Eyes: Negative for injury, chas pain, redness, and discharge, ENT: Negative for injury, pain, and discharge, Neck: Negative for injury, pain, and swelling, Respiratory: Negative for shortness of breath, cough, wheezing, and pleuritic chest pain, Abdomen/GI: Negative for abdominal pain, nausea, vomiting, diarrhea, and constipation, Back: Negative for injury and pain, Exam: 09:38 Constitutional: This is a well developed, well nourished patient who is awake, alert, chas and in no acute distress. Head/Face: Normocephalic, atraumatic. Eyes: Pupils equal round and reactive to light, extra-ocular motions intact. Lids and lashes normal. Conjunctiva and sclera are non-icteric and not injected. Cornea within normal limits. Periorbital areas with no swelling, redness, or edema. ENT: Nares patent. No nasal discharge, no septal abnormalities noted. Tympanic membranes are normal and external auditory canals are clear. Oropharynx with no redness, swelling, or masses, exudates, or evidence of obstruction, uvula midline. Mucous membranes moist. Neck: Trachea midline, no thyromegaly or masses palpated, and no cervical lymphadenopathy. Supple, full range of motion without nuchal rigidity, or vertebral point tenderness. No Meningismus. Chest/axilla: Normal chest wall appearance and motion. Nontender with no deformity. No lesions are appreciated. Respiratory: Lungs have equal breath sounds bilaterally, clear to auscultation and percussion. No rales, rhonchi or wheezes noted. No increased work of breathing, no retractions or nasal flaring. Abdomen/GI: Soft, non-tender, with normal bowel sounds. No distension or tympany. No guarding or rebound. No evidence of tenderness throughout. Back: No spinal tenderness. No costovertebral tenderness. Full range of motion. Male : Normal genitalia with no discharge or lesions. Skin: Warm, dry with normal turgor. Normal color with no rashes, no lesions, and no evidence of cellulitis. MS/ Extremity: Pulses equal, no cyanosis. Neurovascular intact. Full, normal range of motion. Psych: Awake, alert, with orientation to person, place and time. Behavior, mood, and affect are within normal limits. 09:38 Cardiovascular: Rate: normal, actual rate is 83 bpm, Rhythm: regular, Pulses: no pulse deficits are appreciated, Heart sounds: normal, Edema: is not appreciated, JVD: is not appreciated, 09:38 Neuro: Exam negative for acute changes, focal neuro deficits, motor deficits, sensory deficits, cerebellar deficits, altered mental status, confusion, cranial nerve deficits, disorientation, dizziness, dysarthria, gait abnormality, memory loss, paresthesias, Romberg test, weakness, 09:47 Musculoskeletal/extremity: DVT Exam: No signs of deep vein thrombosis. no pain, no chas swelling, no tenderness, negative Homans' sign noted on exam, no appreciated bluish discoloration, no erythema, no increased warmth, 13:49 ECG was reviewed by the Attending Physician. rn Vital Signs: 08:53 BP 122 / 80; Pulse 83; Resp 16; Temp 98; Pulse Ox 98% ; bp 09:53 BP 103 / 66; Pulse 74; Resp 12; Pulse Ox 99% ; bp 11:00 BP 111 / 79; Pulse 72; Resp 14; Pulse Ox 100% ; bp NIH Stroke Scale Scores: 09:38 NIHSS Score: 0 chas MDM: 09:11 Medical Screening Exam initiated chas 09:39 Differential diagnosis: abnormal EKG, acute myocardial infarction, acute pericarditis, chas anxiety, coronary artery disease Cholelithiasis costochondritis, esophagitis, hiatal hernia, pancreatitis, peptic ulcer disease, pneumonia, pulmonary embolus, stable angina, thoracic aortic disection, unstable angina. HEART Score: History: Slightly Suspicious (0), ECG: Normal (0), Age: < or = 45 years (0), Risk Factors: No Risk Factors Known (0), Troponin: < or = 1 x Normal Limit (0), Total Score = 0. Differential diagnosis: drug overdose, cardiac arrhythmia, seizure. FAM Risk Score: 1 - Recent [<24hrs] Severe Angina, TOTAL SCORE = 1. Data reviewed: vital signs, nurses notes, lab test result(s), EKG, radiologic studies. Consideration of Admission/Observation Escalation of care including admission/observation considered. 06/11 09:27 Order name: Acetaminophen; Complete Time: 10:40 [facility] 06/11 09:27 Order name: Basic Metabolic Panel; Complete Time: 10:40 [facility] 06/11 09:27 Order name: CBC with Diff; Complete Time: 10:19 [facility] 06/11 09:27 Order name: ETOH Level; Complete Time: 10:19 [facility] 06/11 09:27 Order name: Hepatic Function; Complete Time: 10:40 [facility] 06/11 09:27 Order name: PT-INR; Complete Time: 10:19 [facility] 06/11 09:27 Order name: Ptt, Activated; Complete Time: 10:19 [facility] 06/11 09:27 Order name: Salicylate; Complete Time: 10:47 [facility] 06/11 10:19 Order name: Chest Single View XRAY [facility] 06/11 09:04 Order name: EKG; Complete Time: 09:05 bp 06/11 09:04 Order name: EKG - Nurse/Tech; Complete Time: 09:04 bp 06/11 09:27 Order name: IV Saline Lock; Complete Time: 09:53 [facility] 06/11 09:27 Order name: Labs collected and sent; Complete Time: 09:53 [facility] 06/11 09:27 Order name: Suicide Screening ([place]); Complete Time: 09:33 [facility] 06/11 09:27 Order name: Seizure Precautions; Complete Time: 09:33 [facility] EC:49 Rate is 74 beats/min. Rhythm is regular. QRS [place] is Normal. IA interval is normal. QRS rn interval is normal. QT interval is normal. No Q waves. T waves are Normal. No ST changes noted. Clinical impression: NSR w/ Non-specific ST/T Changes. Interpreted by me. Reviewed by me. Administered Medications: 09:50 Drug: NS 0.9% IV 1000 ml IV at 1000 ml once; to be given as a bolus over 60 minutes bp Route: IV; Rate: 1000 ml; Site: right wrist; 11:02 Follow up: IV Status: Completed infusion bp Disposition Summary: 06/11/24 10:49 Discharge Ordered Notes: Location: Home chas Problem: new chas Symptoms: have improved chas Condition: Stable chas Diagnosis - Chest pain, unspecified chas - Weakness chas - Other seizures chas Followup: chas - With: Private Physician - When: 2 - 3 days - Reason: Recheck today's complaints, Continuance of care, Re-evaluation by your physician Followup: chas - With: Tanner Hernandez MD - When: 2 - 3 days - Reason: Recheck today's complaints, Re-evaluation by your physician Followup: chas - With: Eliu Aguilar MD - When: 2 - 3 days - Reason: Recheck today's complaints, Re-evaluation by your physician Discharge Instructions: - Discharge Summary Sheet chas - Nonspecific Chest Pain, Adult chas - Weakness chas - Fatigue chas - Nonspecific Chest Pain, Adult, [id number] chas - Seizure, Adult, Kjec-me-Cuty chas - Weakness, Cyud-yx-Obhe chas - Aspirin and Your Heart chas Forms: - Medication Reconciliation Form chas - Antibiotic Education chas - Prescription Opioid Use chas - Patient Portal Instructions chas - Leadership Thank You Letter [facility] NIH Stroke Scale - NIH Stroke Score Date: 06/11/2024 Time: 09:38 Total Score = 0 10. Dysarthria (speech clarity - read or repeat words) - 0(Normal) 11. Extinction and Inattention (visual/tactile/auditory/spatial/personal) - 0(No abnormality) 1a. Level of Consciousness (LOC) - 0(Alert) 1b. Level of Consciousness (LOC) (Month \T\ Age) - 0(Both) 1c. LOC Commands (Open \T\ Closes Eyes/Specialist Employee Labor Relations) - 0(Both) 2. Best Gaze (Lateral Gaze Paresis) - 0(Normal) 3. Visual Field Loss - 0(No visual loss) 4. Facial Palsy - 0(Normal) 5a. Left Arm: Motor (10-second hold) - 0(No drift) 5b. Right Arm: Motor (10-second hold) - 0(No drift) 6a. Left Leg: Motor (5-second hold - always test supine) - 0(No drift) 6b. Right Leg: Motor (5-second hold - always test supine) - 0(No drift) 7. Limb Ataxia (finger/nose \T\ heel/graves - test with eyes open) - 0(Absent) 8. Sensory Loss (pinprick arms/legs/face) - 0(Normal) 9. Best Language: Aphasia (description/naming/reading) - 0(No aphasia) Initials: chas Signatures: Dispatcher [employer] EDMS Iban Davis MD MD cha Nieto, Roman, MD MD rn Peltier, Gerry, RN RN bp Corrections: (The following items were deleted from the chart) 09:28 09:28 ACETAMINOPHEN+C.LAB.BRZ ordered. EDMS EDMS 09:28 09:28 BASIC METABOLIC PANEL+C.LAB.BRZ ordered. EDMS EDMS 09:28 09:28 CBC+H.LAB.BRZ ordered. EDMS EDMS 09:28 09:28 ETHANOL+C.LAB.BRZ ordered. EDMS EDMS 09:28 09:28 HEPATIC FUNCTION+C.LAB.BRZ ordered. EDMS EDMS 09:28 09:28 PROTIME (+INR)+COAG.LAB.BRZ ordered. EDMS EDMS 09:28 09:28 PTT, ACTIVATED+COAG.LAB.BRZ ordered. EDMS EDMS 09:28 09:28 SALICYLATE+C.LAB.BRZ ordered. EDMS EDMS 09:28 09:28 URINE DRUG SCREEN+UC.LAB.BRZ ordered. EDMS EDMS
--- NOTE | 2024-06-11 11:25 | RAD REPORT ---
EXAMINATION: ONE VIEW CHEST XR CLINICAL INDICATION: Male, 28 years old.,CHEST PAIN TECHNIQUE: Frontal chest projection is submitted. Examination is limited by patient positioning and t echnique. COMPARISON: 05/27/2024 FINDINGS: The lungs are well inflated and clear. No pneumothorax or sizable effusion. The heart is normal in s ize. Mediastinal contours are unremarkable. IMPRESSION: No acute intrathoracic abnormalities.
[2024-06-11 12:59] VITALS: TEMP 98
[2024-06-11 13:11] VITALS: BP 111/79; O2SAT 100
--- NOTE | 2024-06-15 14:19 | EKG ---
Test Date: 2024-06-11 Test Time: 09:00:04 Health Coach: JANIA MEASUREMENT RESULTS: Intervals: Rate: 74 IN: 134 QRSD: 96 QT: 412 QTc: 457 [place]: P: 64 IN: 134 QRS: 61 T: 0 INTERPRETIVE STATEMENTS: Normal sinus rhythm Nonspecific ST and T wave abnormality Abnormal ECG Compared to ECG 05/27/2024 10:39:36 ST (T wave) deviation now present Sinus bradycardia no longer present Electronically Signed On 06-15-24 14:15:48 [employer] by Tanner Hernandez
== END 2024-06-11 11:02 | disposition home or self-care (01) ==
LOC: ER 08:52
DX: R07.9 Chest pain, unspecified (principal); R53.1 Weakness; G40.89 Other seizures
CPT/HCPCS: 36415; 71045; 80048; 80076; 80143; 80179; 82077; 85025; 85610; 85730; 93005; 96360; 99285

== ENCOUNTER 2024-08-28 23:04 | Emergency (ER) | payer OTHER ==
[2024-08-28] MEDS ORDERED: droPERidol 5 MG/2 ML VIAL ONE (23:12)
[2024-08-28] MEDS ORDERED: NA CHLORIDE 0.9% 1,000 ML ONE (23:13)
[2024-08-28 23:42] LABS: Absolute Basophils 0.1 K/uL (0-0.5); Absolute Eosinophils 0.1 K/uL (0-0.5); Absolute Monocytes 0.5 K/uL (0.1-1.3); Absolute Neutrophil 2.1 K/uL (1.8-8.0); Basophils % 1.3 % (0-1.3); Hematocrit 42.4 % (39.6-49.0); Hemoglobin 14.2 g/dL (13.6-17.9); Lymphocytes % 58.3 % (15.3-44.8); MCH 29.1 pg (27.0-35.0); MCHC 33.6 g/dL (32.0-36.0); MCV 86.6 fL (80-100); MPV 8.4 fL (7.6-11.3); Monocytes % 7.3 % (3.3-12.3); Neutrophils % 31.1 % (41.7-73.7); Nucleated Red Blood Cells % 0.3 % (0-0); Platelets 425 thou/uL (152-406); RBC Red Blood Cell Count 4.89 M/uL (4.33-5.43); Red Cell Distribution Width 14.2 % (12.1-15.2)
[2024-08-29] LABS: Albumin 4.3 g/dL (3.4-5.0); Albumin/Globulin Ratio 1.2 (1.1-1.8); Anion Gap 16.1 mEq/L (5.0-15.0); Bilirubin Direct 0.3 mg/dL (0-0.2); Bilirubin Indirect, Calculated 0.7 mg/dL (0.2-0.8); Globulin 3.6 g/dL (2.3-3.5); Potassium 3.1 mEq/L (3.5-5.1); Protein, Total 7.9 g/dL (6.4-8.2); Troponin High Sensitivity 5.2 pg/mL (<58.9)
[2024-08-29] MEDS ORDERED: NA CHLORIDE 0.9% 1,000 ML ONE (00:01)
[2024-08-29] MEDS ORDERED: POTASSIUM 25 MEQ EFFERV TAB ONE (00:13)
[2024-08-29] MEDS ORDERED: DIVALPROEX DR 250 MG TAB PO ONE (00:19)
--- NOTE | 2024-08-29 00:29 | EDPHYS ---
Physician Documentation [facility] Name: Mikal Landers Age: 28 yrs Sex: Male : 1995 Arrival Date: 08/28/2024 Time: 23:04 Bed 6 Private MD: ED Physician Anibal Barajas HPI: 08/28 23:14 This 28 yrs old Black Male presents to ER via Unassigned with complaints of sb4 Nausea/Vomiting, Drug Abuse. 23:17 patient is complaining of nausea, vomiting, and chest pain. states he smoked meth 2 sb4 days ago and smoked synthetic marijuana this morning. has a history of epilepsy, reports taking his meds inconsistently but did take it this morning. Historical: - Allergies: 23:25 No Known Allergies; bm8 - Home Meds: 23:25 Depakote Oral [Active]; Focalin oral [Active]; bm8 - PMHx: 23:25 adhd; Seizure; bm8 - PSHx: 23:25 None; bm8 - Immunization history:: Adult Immunizations up to date. - Infectious Disease History:: Denies. - Social history:: Smoking status: Patient denies any tobacco usage or history of. ROS: 23:17 Constitutional: Negative for fever, chills, and weight loss, sb4 23:17 Cardiovascular: Positive for chest pain, 23:17 Abdomen/GI: Positive for nausea and vomiting, 23:17 All other systems are negative, Exam: 23:17 Head/Face: Normocephalic, atraumatic. Eyes: Extra-ocular motions intact. Periorbital sb4 areas with no swelling, redness, or edema. ENT: Mucous membranes moist. Cardiovascular: Regular rate and rhythm with a normal S1 and S2. Respiratory: No increased work of breathing, no retractions or nasal flaring. Abdomen/GI: Soft, non-tender, no distension. Skin: Warm, dry with normal turgor. Normal color with no rashes, no lesions, and no evidence of cellulitis. 23:17 Constitutional: The patient appears alert, awake, anxious, restless, 23:17 Neuro: seizure activity, is not displayed by the patient, Vital Signs: 23:05 BP 145 / 79; Pulse 95; Resp 18; Temp 97.9; Pulse Ox 100% ; Weight 67.13 kg; Height 5 bm8 ft. 5 in. ; Pain 8/10; 08/29 00:03 BP 103 / 65; Pulse 61; Resp 17; Temp 97.9; Pulse Ox 100% ; Pain 0/10; bm8 01:00 BP 98 / 71; Pulse 62; Resp 18; Temp 97.9; Pulse Ox 100% ; Pain 0/10; bm8 08/28 23:05 Body Mass Index 24.63 (67.13 kg, 165.1 cm) 8 08/28 23:05 Pain Scale: Adult bm8 08/29 00:03 Pain Scale: Adult bm8 01:00 Pain Scale: Adult bm8 [place] Coma Score: 08/28 23:29 Eye Response: spontaneous(4). Motor Response: obeys commands(6). Verbal Response: bm8 oriented(5). Total: 15. 08/29 00:03 Eye Response: spontaneous(4). Motor Response: obeys commands(6). Verbal Response: bm8 oriented(5). Total: 15. 01:00 Eye Response: spontaneous(4). Motor Response: obeys commands(6). Verbal Response: bm8 oriented(5). Total: 15. MDM: 08/28 23:06 Medical Screening Exam initiated sb4 08/29 00:28 Data reviewed: vital signs, nurses notes, lab test result(s), and as a result, I will sb4 discharge patient. Counseling: I had a detailed discussion with the patient and/or guardian regarding the historical points, exam findings, and any diagnostic results supporting the discharge/admit diagnosis, lab results, radiology results, the need for outpatient follow up, for definitive care, to return to the emergency department if symptoms worsen or persist or if there are any questions or concerns that arise at home. 08/28 23:06 Order name: Basic Metabolic Panel; Complete Time: 00:05 sb4 08/28 23:06 Order name: CBC with Diff sb4 08/28 23:06 Order name: LFT's; Complete Time: 00:05 sb4 08/28 23:06 Order name: Magnesium; Complete Time: 00:05 sb4 08/28 23:06 Order name: Troponin HS; Complete Time: 00:05 sb4 08/28 23:27 Order name: Depakote; Complete Time: 00:08 sb4 08/28 23:06 Order name: XRAY Chest (1 view) sb4 08/28 23:06 Order name: EKG; Complete Time: 23:07 sb4 08/28 23:06 Order name: Cardiac monitoring; Complete Time: 23:21 sb4 08/28 23:06 Order name: EKG - Nurse/Tech; Complete Time: 23:21 sb4 08/28 23:06 Order name: IV Saline Lock; Complete Time: : sb4 08/28 23:06 Order name: Labs collected and sent; Complete Time: 23: sb4 08/28 23:06 Order name: O2 Per Protocol; Complete Time: 23: sb4 08/28 23:06 Order name: O2 Sat Monitoring; Complete Time: : sb4 EC/13 23:22 Rate is 71 beats/min. Rhythm is regular, Normal Sinus Rhythm. [place] interval is normal at sb4 154 msec. QRS interval is normal at 88 msec. QT interval is prolonged at 450 msec. No Q waves. T waves are Normal. No ST changes noted. Clinical impression: Normal ECG. Interpreted by me. Reviewed by me. Administered Medications: 23:21 Drug: Droperidol IVP 1.25 mg IVP once Route: IVP; Site: right forearm; bm8 08/29 00:02 Follow up: Response: No adverse reaction bm8 08/28 23:21 Drug: NS 0.9% IV 1000 ml IV at 1000 ml once; to be given as a bolus over 60 minutes bm8 Route: IV; Rate: 1000 ml; Site: right forearm; 08/29 00:02 Follow up: Response: No adverse reaction; IV Status: Completed infusion; IV Intake: bm8 1000ml 00:04 Drug: NS 0.9% IV 1000 ml IV at 1000 ml once; to be given as a bolus over 60 minutes bm8 Route: IV; Rate: 1000 ml; Site: right forearm; 01:00 Follow up: Response: No adverse reaction; IV Status: Completed infusion; IV Intake: bm8 1000ml 00:20 Not Given (Patient Refused): potassiumeffervescent tablet 50 meq PO once; dissolve in 4 bm8 ounces of water or juice 00:21 Not Given (Patient Refused): valproic [id number] mg PO once bm8 Disposition: 08/30 00:56 Co-signature as Attending Physician, Anibal Barajas MD I agree with the assessment sp4 and plan of care. I reviewed the patient's care provided by the Advanced Practice Provider and agree with the diagnosis and treatment plan. Disposition Summary: 08/29/24 00:28 Discharge Ordered Notes: Location: Home sb4 Problem: new sb4 Symptoms: have improved sb4 Condition: Stable sb4 Diagnosis - Adverse effect of other drugs, medicaments and biological substances sb4 - Patient's other noncompliance with medication regimen sb4 Followup: sb4 - With: Emergency Department - When: As needed - Reason: Trouble breathing, Worsening of condition Discharge Instructions: - Discharge Summary Sheet sb4 - Methamphetamines Use Disorder sb4 - Epilepsy, [id number] sb4 Forms: - Patient Portal Instructions sb4 - Leadership Thank You Letter sb4 Signatures: Dispatcher [employer] EDMS Araceli Fernandez PA-C [place] sb4 Anibal Barajas MD MD sp4 Joesph Garcia, RN RN bm8 Corrections: (The following items were deleted from the chart) 08/28 23:27 23:27 VALPROIC ACID (DEPAKOTE)+C.LAB.BRZ ordered. EDMS EDMS
--- NOTE | 2024-08-29 00:29 | ER ---
Nurse's Notes [facility] Name: Mikal Landers Age: 28 yrs Sex: Male : 1995 Arrival Date: 08/28/2024 Time: 23:04 Bed 6 Private MD: Diagnosis: Adverse effect of other drugs, medicaments and biological substances;Patient's other noncompliance with medication regimen Presentation: 08/28 23:05 Chief complaint: Patient states: I have chest pain nausea and vomiting with abd pain. bm8 EMS states: pt may or may not of had a seizure after smoking synthetic marijuana, also smoked meth sometime in the last two days, that is unclear. pt started vomiting when we pulled in. Has a hx of epilepsy and pt is non compliant with home medications. 23:05 Coronavirus screen: At this time, the client does not indicate any symptoms associated bm8 with coronavirus-19. Ebola Screen: Patient negative for fever greater than or equal to 101.5 degrees Fahrenheit, and additional compatible Ebola Virus Disease symptoms Patient denies exposure to infectious person. Patient denies travel to an Ebola-affected area in the 21 days before illness onset. No symptoms or risks identified at this time. Initial Sepsis Screen: Does the patient meet any 2 criteria? No. Patient's initial sepsis screen is negative. Does the patient have a suspected source of infection? No. Patient's initial sepsis screen is negative. Risk Assessment: Do you want to hurt yourself or someone else? Patient reports no desire to harm self or others. Onset of symptoms is unknown. Care prior to arrival: None. 23:05 Method Of Arrival: EMS: [facility] bm8 23:05 Acuity: ARIS 2 bm8 Triage Assessment: 23:05 General: Appears distressed, uncomfortable, slender, well groomed, well developed, well bm8 nourished, Behavior is cooperative, appropriate for age. 23:05 Pain: Complains of pain in chest and abdomen Pain currently is 8 out of 10 on a pain bm8 scale. EENT: No deficits noted. No signs and/or symptoms were reported regarding the EENT system. Neuro: No deficits noted. Level of Consciousness is awake, alert, obeys commands, Oriented to person, place, time, situation, Appropriate for age. Cardiovascular: Reports chest pain, nausea, vomiting, Heart tones S1 S2 present. Respiratory: Airway is patent Respiratory effort is even, unlabored, Breath sounds are clear bilaterally. GI: Reports lower abdominal pain, upper abdominal pain, nausea, Pain is 8 out of 10 on a pain scale. vomiting. : No signs and/or symptoms were reported regarding the genitourinary system. Derm: No signs and/or symptoms reported regarding the dermatologic system. Musculoskeletal: No signs and/or symptoms reported regarding the musculoskeletal system. Historical: - Allergies: 23:25 No Known Allergies; bm8 - Home Meds: 23:25 Depakote Oral [Active]; Focalin oral [Active]; bm8 - PMHx: 23:25 adhd; Seizure; bm8 - PSHx: 23:25 None; bm8 - Immunization history:: Adult Immunizations up to date. - Infectious Disease History:: Denies. - Social history:: Smoking status: Patient denies any tobacco usage or history of. Screenin:29 [facility] ED Fall Risk Assessment (Adult) History of falling in the last 3 months, bm8 including since admission No falls in past 3 months (0 pts) Confusion or Disorientation No (0 pts) Intoxicated or Sedated No (0 pts) Impaired Gait No (0 pts) Mobility Assist Device Used No (0 pt) Altered Elimination No (0 pt) Score/Fall Risk Level 0 - 2 = Low Risk Oriented to surroundings, Maintained a safe environment, Educated pt \T\ family on fall prevention, incl call for assistance when getting out of bed, Assessed \T\ reinforced patient's understanding of fall precautions, Hourly rounding (assess needs \T\ fall precautionary measures) done, Used ambulatory aids as needed (educated on \T\ assisted with), Used gait belt as appropriate. Abuse screen: Denies threats or abuse. Nutritional screening: No deficits noted. Tuberculosis screening: No symptoms or risk factors identified. Assessment: 23:29 Reassessment: Patient appears in no apparent distress at this time. Patient and/or bm8 family updated on plan of care and expected duration. Pain level reassessed. Patient is alert, oriented x 3, equal unlabored respirations, skin warm/dry/pink. Patient states feeling better. Patient states symptoms have improved. GI: Reports nausea is already greatly improved. 08/29 00:03 Reassessment: Patient appears in no apparent distress at this time. Patient and/or bm8 family updated on plan of care and expected duration. Pain level reassessed. Patient denies pain at this time. Patient states feeling better. Patient states symptoms have improved. Reassessment: pt is resting with eyes closed breathing is even unlabored with symmetrical rise and fall of chest. GI: Patient currently denies nausea, pain, vomiting. 01:00 Reassessment: Patient appears in no apparent distress at this time. No changes from banner previously documented assessment. Patient and/or family updated on plan of care and expected duration. Pain level reassessed. Patient is alert, oriented x 3, equal unlabored respirations, skin warm/dry/pink. Patient denies pain at this time. Patient states feeling better. Patient states symptoms have improved. Vital Signs: 08/28 23:05 BP 145 / 79; Pulse 95; Resp 18; Temp 97.9; Pulse Ox 100% ; Weight 67.13 kg; Height 5 bm8 ft. 5 in. ; Pain 8/10; 08/29 00:03 BP 103 / 65; Pulse 61; Resp 17; Temp 97.9; Pulse Ox 100% ; Pain 0/10; bm8 01:00 BP 98 / 71; Pulse 62; Resp 18; Temp 97.9; Pulse Ox 100% ; Pain 0/10; 8 08/28 23:05 Body Mass Index 24.63 (67.13 kg, 165.1 cm) banner 08/28 23:05 Pain Scale: Adult bm8 08/29 00:03 Pain Scale: Adult 8 01:00 Pain Scale: Adult bm8 Lexi Coma Score: 08/28 23:29 Eye Response: spontaneous(4). Motor Response: obeys commands(6). Verbal Response: bm8 oriented(5). Total: 15. 08/29 00:03 Eye Response: spontaneous(4). Motor Response: obeys commands(6). Verbal Response: bm8 oriented(5). Total: 15. 01:00 Eye Response: spontaneous(4). Motor Response: obeys commands(6). Verbal Response: bm8 oriented(5). Total: 15. ED Course: 08/28 23:05 Patient arrived in ED. sb4 23:05 [facility] sb[facility] 23:05 Anibal Barajas MD is Attending Physician. sb4 23:05 Arm band placed on right wrist. bm8 23:10 Joesph Garcia, RN is Primary Nurse. bm8 23:24 XRAY Chest (1 view) In Process Unspecified. EDMS 23:24 Triage completed. bm8 23:29 Patient has correct armband on for positive identification. Placed in gown. Bed in low bm8 position. Call light in reach. Side rails up X 1. Client placed on continuous cardiac and pulse oximetry monitoring. NIBP monitoring applied. Pulse ox on. NIBP on. Door closed. Noise minimized. Warm blanket given. Verbal reassurance given. 23:29 No provider procedures requiring assistance completed. Initial lab(s) drawn, by me, bm8 sent to lab. EKG done, by ED staff. Inserted saline lock: 20 gauge in right forearm, using aseptic technique. Blood collected. Flushed with 10 mL NS. Patient maintains SpO2 saturation greater than 95% on room air. 08/29 01:00 Provided Education on: post er care. bm8 01:00 IV discontinued, intact, bleeding controlled, No redness/swelling at site. Pressure bm8 dressing applied. Administered Medications: 08/28 23:21 Drug: Droperidol IVP 1.25 mg IVP once Route: IVP; Site: right forearm; bm8 08/29 00:02 Follow up: Response: No adverse reaction bm8 08/28 23:21 Drug: NS 0.9% IV 1000 ml IV at 1000 ml once; to be given as a bolus over 60 minutes bm8 Route: IV; Rate: 1000 ml; Site: right forearm; 08/29 00:02 Follow up: Response: No adverse reaction; IV Status: Completed infusion; IV Intake: bm8 1000ml 00:04 Drug: NS 0.9% IV 1000 ml IV at 1000 ml once; to be given as a bolus over 60 minutes bm8 Route: IV; Rate: 1000 ml; Site: right forearm; 01:00 Follow up: Response: No adverse reaction; IV Status: Completed infusion; IV Intake: bm8 1000ml 00:20 Not Given (Patient Refused): potassiumeffervescent tablet 50 meq PO once; dissolve in 4 bm8 ounces of water or juice 00:21 Not Given (Patient Refused): valproic [id number] mg PO once bm8 Medication: 08/28 23:29 VIS not applicable for this client. bm8 Intake: 08/29 00:02 IV: 1000ml; Total: 1000ml. bm8 01:00 IV: 1000ml; Total: 2000ml. bm8 Outcome: 00:28 Discharge ordered by . [email or web address] 01:00 Discharged to home ambulatory, bm8 01:00 Condition: stable 01:00 Discharge instructions given to patient, Instructed on discharge instructions, follow up and referral plans. no drinking with medication, no driving heavy equipment, medication usage, Demonstrated understanding of instructions, follow-up care, medications, 01:02 Patient left the ED. bm8 Signatures: Dispatcher [employer] EDMS Araceli Fernandez PA-C PA-C sb4 Joesph Garcia, RN RN bm8 Corrections: (The following items were deleted from the chart) 00:21 00:20 Valproic Acid PO 250 mg PO bm8 bm8
[2024-08-29 01:08] VITALS: TEMP 97.9; O2SAT 100
[2024-08-29 01:11] VITALS: BP 98/71
--- NOTE | 2024-08-29 05:34 | RAD REPORT ---
EXAM DESCRIPTION: Chest Single View CLINICAL HISTORY: CHEST PAIN COMPARISON: None TECHNIQUE: Single AP view of the chest. FINDINGS: Lung volumes adequate. Cardiac silhouette is normal in size. No pneumothorax. No large pleural effusion. No focal consolidation. No acute bony finding. IMPRESSION: No evidence of acute cardiopulmonary disease. 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 Transcribed Date/Time: 08/29/2024 5:34 AM
== END 2024-08-29 01:02 | disposition home or self-care (01) ==
LOC: ER 23:04
DX: T50.995A Adverse effect of other drugs, medicaments and biological substances, initial encounter (principal); Z91.148 Patient's other noncompliance with medication regimen for other reason; R11.2 Nausea with vomiting, unspecified
CPT/HCPCS: 96361; 93005; 85025; 80048; 36415; 83735; 80076; 80164; 84484; 71045; 96374; 99284; J1790; J7030 ×2

== ENCOUNTER 2024-09-22 14:07 | Emergency (ER) | payer OTHER ==
--- NOTE | 2024-09-22 15:18 | EDPHYS ---
Physician Documentation [facility] Name: Mikal Landers Age: 28 yrs Sex: Male : 1995 Arrival Date: 09/22/2024 Time: 14:07 Bed IW4 Private MD: ED Physician Nico Tellez HPI: 09/22 15:15 This 28 yrs old Black Male presents to ER via EMS with complaints of Nausea/Vomiting. cp 15:15 The patient presents to the emergency department with nausea, vomiting, that is cp intermittent. 15:15 Onset: The symptoms/episode began/occurred 2 week(s) ago, vomiting for past 4 days. cp 15:15 Possible causes: unknown. Associated signs and symptoms: Pertinent positives: anorexia, cp diarrhea, cough, Pertinent negatives: constipation. Severity of symptoms: in the emergency department the symptoms are unchanged despite home interventions. Historical: - Allergies: 14:37 No Known Allergies; hb - PMHx: 14:37 adhd; Seizure; hb - Immunization history:: Adult Immunizations up to date. - Infectious Disease History:: Denies. - Social history:: Smoking status: Patient denies any tobacco usage or history of. Patient uses street drugs. ROS: 15:15 Constitutional: Negative for body aches, chills, fever, cp 15:15 Eyes: Negative for injury, pain, redness, and discharge, cp 15:15 Cardiovascular: Negative for chest pain, palpitations, 15:15 Respiratory: Positive for cough, Negative for shortness of breath, wheezing, 15:15 Abdomen/GI: Positive for nausea, vomiting, diarrhea, Negative for active vomiting, 15:15 Neuro: Negative for altered mental status, dizziness, headache, weakness, 15:15 All other systems are negative, Exam: 15:15 Head/Face: Normocephalic, atraumatic. cp 15:15 Constitutional: The patient appears in no acute distress, alert, awake, non-toxic, well developed, well nourished, 15:15 Eyes: Periorbital structures: appear normal, Conjunctiva: normal, no exudate, no injection, Sclera: no appreciated abnormality, Lids and lashes: appear normal, bilaterally, 15:15 ENT: External ear(s): are unremarkable, Nose: is normal, Mouth: Lips: moist, Oral mucosa: pink and intact, moist, Posterior pharynx: Airway: no evidence of obstruction, patent, 15:15 Neck: ROM/movement: is normal, is supple, without pain, no range of motions limitations, no meningismus, no nuchal rigidity, 15:15 Chest/axilla: Inspection: normal, 15:15 Cardiovascular: Rate: normal, 15:15 Respiratory: the patient does not display signs of respiratory distress, Respirations: normal, no use of accessory muscles, no retractions, labored breathing, is not present, Breath sounds: are clear throughout, no decreased breath sounds, no stridor, no wheezing, 15:15 Abdomen/GI: Inspection: abdomen appears normal, Palpation: soft, in all quadrants, mild abdominal tenderness, in the epigastric area, right upper quadrant and left upper quadrant, 15:15 Back: CVA tenderness, is absent, 15:15 Neuro: Orientation: to person, place \T\ time. Mentation: is normal, Motor: moves all fours, strength is normal, Gait: is steady, at a normal pace, without difficulty, Vital Signs: 14:35 BP 116 / 72; Pulse 78; Resp 16; Temp 98.6; Pulse Ox 100% on R/A; Weight 68.04 kg; hb Height 5 ft. 6 in. ; Pain 5/10; 14:35 Body Mass Index 24.21 (68.04 kg, 167.64 cm) hb 14:35 Pain Scale: Adult hb MDM: 15:17 Medical Screening Exam initiated cp 15:17 Data reviewed: vital signs, nurses notes, and as a result, I will discharge patient. cp 15:17 Differential diagnosis: gastritis, cholecystitis, pancreatitis, appendicitis, viral cp gastroenteritis, gastroenteritis. Refusal of service: The patient/guardian displays adequate decision making capability and despite a detailed discussion of alternatives, benefits, risks, and consequences refuses: all lab tests. ED course: patient requests note for work and declines any testing at this time. patient understands he can return at any time for reevaluation. Administered Medications: No medications were administered Disposition: 09/23 07:02 Co-signature as Attending Physician, Nico Tellez MD I reviewed the patient's care rn provided by the Advanced Practice Provider and agree with the diagnosis and treatment plan. Disposition Summary: 09/22/24 15:17 Discharge Ordered Notes: Location: Home cp Problem: new cp Symptoms: have improved cp Condition: Stable cp Diagnosis - Nausea with vomiting, unspecified cp - Diarrhea, unspecified cp Followup: cp - With: Private Physician - When: 2 - 3 days - Reason: Worsening of condition Discharge Instructions: - Discharge Summary Sheet cp - Diarrhea, Adult cp - Nausea and Vomiting, Adult cp - Form - Return To Work cp Forms: - Work release form ss - Medication Reconciliation Form cp - Antibiotic Education cp - Prescription Opioid Use cp - Patient Portal Instructions cp - Leadership Thank You Letter cp Signatures: Dispatcher [employer] EDMS Nico Tellez MD MD rn Iban Hernandez PA PA cp Gabriella Medina RN RN Corrections: (The following items were deleted from the chart) 09/22 15:02 15:02 CBC+H.LAB.BRZ ordered. EDMS EDMS 15:02 15:02 COMPREHENSIVE METABOLIC PANEL+C.LAB.BRZ ordered. EDMS EDMS 15:02 15:02 LIPASE+C.LAB.BRZ ordered. EDMS EDMS 15:02 15:02 Urinalysis+U.LAB.BRZ ordered. EDMS EDMS 15:29 15:01 IV Saline Lock ordered. cp ss 15:29 15:01 Labs collected and sent ordered. cp ss
--- NOTE | 2024-09-22 15:18 | ER ---
Nurse's Notes [facility] Name: Mikal Landers Age: 28 yrs Sex: Male : 1995 Arrival Date: 09/22/2024 Time: 14:07 Bed IW4 Private MD: Diagnosis: Nausea with vomiting, unspecified;Diarrhea, unspecified Presentation: 09/22 14:35 Chief complaint: EMS states: Nausea x 2 weeks, vomiting and chills x 4 days. Not hb tolerating fluids. Coronavirus screen: Client presents with at least one sign or symptom that may indicate coronavirus-19. Provider contacted for isolation considerations. Ebola Screen: No symptoms or risks identified at this time. Initial Sepsis Screen: Does the patient meet any 2 criteria? No. Patient's initial sepsis screen is negative. Does the patient have a suspected source of infection? No. Patient's initial sepsis screen is negative. Risk Assessment: Do you want to hurt yourself or someone else? Patient reports no desire to harm self or others. Onset of symptoms was August 2024. 14:35 Method Of Arrival: EMS: [facility] 14:35 Acuity: ARIS 3 hb Historical: - Allergies: 14:37 No Known Allergies; hb - PMHx: 14:37 adhd; Seizure; hb - Immunization history:: Adult Immunizations up to date. - Infectious Disease History:: Denies. - Social history:: Smoking status: Patient denies any tobacco usage or history of. Patient uses street drugs. Screenin:29 Abuse screen: Denies threats or abuse. Denies injuries from another. Nutritional ss screening: No deficits noted. Tuberculosis screening: Never had TB. Assessment: 15:29 General: Appears in no apparent distress. comfortable, Behavior is calm, cooperative. ss Neuro: Level of Consciousness is awake, alert, obeys commands, Oriented to person, place, time, situation. Respiratory: Airway is patent Respiratory effort is even, unlabored, Respiratory pattern is regular, symmetrical. Derm: Skin is intact, is healthy with good turgor, Skin is pink, warm \\T\\ dry. normal. Vital Signs: 14:35 BP 116 / 72; Pulse 78; Resp 16; Temp 98.6; Pulse Ox 100% on R/A; Weight 68.04 kg; hb Height 5 ft. 6 in. ; Pain 5/10; 14:35 Body Mass Index 24.21 (68.04 kg, 167.64 cm) hb 14:35 Pain Scale: Adult hb ED Course: 14:08 Patient arrived in ED. mr 14:12 Iban Hernandez PA is PHCP. cp 14:12 Nico Tellez MD is Attending Physician. cp 14:37 Triage completed. hb 14:38 Arm band placed on. hb 15:14 called patient from [facility]. and he stated " im gonna go im already late for work". bc6 15:29 Patient has correct armband on for positive identification. ss 15:29 No provider procedures requiring assistance completed. Patient did not have IV access ss during this emergency room visit. Administered Medications: No medications were administered Medication: 15:29 VIS not applicable for this client. ss Outcome: 15:17 Discharge ordered by MD. cp 15:29 Discharged to home ambulatory, ss 15:29 Condition: good 15:29 Discharge instructions given to patient, Instructed on discharge instructions, follow up and referral plans. Demonstrated understanding of instructions, follow-up care, 15:31 Patient left the ED. ss Signatures: Alida Pittman, Reg Reg MoserJosee, RN RN Iban Hernandez PA PA cp Baxter, Heather, RN RN Anita Magdaleno bc6 Corrections: (The following items were deleted from the chart) 14:38 14:35 Resp 16bpm; Pulse Ox 100% RA; 68.04 kg; Height 5 ft. 6 in.; BMI: 24.2; Pain 5/10, hb Adult; hb
[2024-09-22 15:36] VITALS: BP 116/72; TEMP 98.6; O2SAT 100
== END 2024-09-22 15:31 | disposition home or self-care (01) ==
LOC: ER 14:07
DX: R11.2 Nausea with vomiting, unspecified (principal); R19.7 Diarrhea, unspecified
CPT/HCPCS: 99283